=== PATIENT | female | born 1990 | race Caucasian/White ===

== ENCOUNTER 2017-05-15 14:23 | Emergency (ER) | payer OTHER ==
[~2017-05-15] VITALS: Ht 160 cm; Wt 50.8 kg
[2017-05-15] MEDS ORDERED: IBUP-1984 PO (15:21)
[2017-05-15] MEDS ORDERED: CYCL-1 PO (15:21)
[2017-05-15 15:57] VITALS: BP 119/51
== END 2017-05-15 15:55 | disposition home or self-care (01) ==
LOC: ER 14:23
DX: S13.4XXA Sprain of ligaments of cervical spine, initial encounter (principal); S06.0X0A Concussion without loss of consciousness, initial encounter; S20.219A Contusion of unspecified front wall of thorax, initial encounter; V47.1XXA Car passenger injured in collision with fixed or stationary object in nontraffic accident, initial encounter; Y92.410 Unspecified street and highway as the place of occurrence of the external cause; Y93.89 Activity, other specified; Y99.8 Other external cause status
CPT/HCPCS: 71046; 72040; 99284; L0172